=== PATIENT | male | born 1940 | race African-American/Black ===

== ENCOUNTER 2021-12-31 09:57 | Emergency (ER) | payer MEDICAID, OTHER ==
[~2021-12-31] VITALS: Ht 170.2 cm; Wt 87.0 kg
[~2021-12-31 09:57] MED LIST: ASPI-1497 PO; ATEN-42 PO; CLON1PAT10 TD; DIPH25CA83 PO; KETO5DRO7 OP; LISI1TAB13 PO; SIMV-46 PO; TOPI25TA48 PO
[2021-12-31] MEDS ORDERED: IBUPROFEN 600MG TABLET PO STA (10:20)
[2021-12-31 10:52] LABS: BASOPHILS % 0.7 % (0.0-2.0); EOSINOPHILS % 3.2 % (0.0-5.0); HEMATOCRIT. 39.6 % (42.0-52.0); HEMOGLOBIN. 13.3 g/dL (14.0-18.0); MEAN CORPUSCULAR HEMOGLOBIN 31.3 pg (28.0-32.0); MEAN CORPUSCULAR VOLUME 92.9 fL (80.0-94.0); MEAN PLATELET VOLUME 7.4 fl (7.4-10.4); MONOCYTES % 7.4 % (2.0-8.0); NEUTROPHILS % 69.7 % (40.0-76.0); PLATELET 260 x1000/uL (130-400); RED BLOOD CELL COUNT 4.26 mill/uL (4.7-6.1); RED CELL DISTRIBUTION WIDTH 15.1 % (11.6-14.6)
[2021-12-31 10:59] LABS: CHLORIDE 105 mEq/L (98-107)
[2021-12-31 11:01] LABS: CLARITY URINE CLEAR (CLEAR); COLOR URINE YELLOW (YELLOW); KETONES URINE NEGATIVE (NEGATIVE); LEUKOCYTE ESTERASE URINE NEGATIVE (NEGATIVE); NITRITE URINE NEGATIVE (NEGATIVE); OCCULT BLOOD URINE 2+ (NEGATIVE); PROTEIN URINE TRACE (NEGATIVE); SPECIFIC GRAVITY URINE 1.012 (1.005-1.030); UROBILINOGEN URINE 0.2 E.U./dL (0.2-1.0)
[2021-12-31] MEDS ORDERED: FINA5TAB11 MT (13:12)
[2021-12-31 13:59] VITALS: BP 166/111
== END 2021-12-31 14:00 | disposition home or self-care (01) ==
LOC: ER 09:57
DX: R31.9 Hematuria, unspecified (principal); I10 Essential (primary) hypertension; Z86.73 Personal history of transient ischemic attack (TIA), and cerebral infarction without residual deficits
CPT/HCPCS: 36415; 76770; 80053; 81003; 85025; 99284